=== PATIENT | male | born 1995 | race African-American/Black ===

== ENCOUNTER 2021-06-08 14:04 | Emergency (ER) | payer SELFPAY ==
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
--- NOTE | 2021-06-08 23:09 | PCM.EKG ---
#1 Interpretation EKG Date: 06/08/21 Time: 15:08 Rhythm: NSR Rate (Beats/Min): 84 [place]: Normal P-Wave: Present QRS: Normal ST-T: Normal QT: Normal Comparison: NA - No Prior EKG EKG Interpretation Comments: Per Dr. Key interpretation: Sinus rhythm at 84 bpm; Q waves V1 and R3rgnmakxt anteroseptal AL; LVH patternlikely normal for age
== END 2021-06-08 20:35 ==
LOC: JD.ED 14:04
DX: U07.1 COVID-19 (principal); F32.9 Major depressive disorder, single episode, unspecified; F11.10 Opioid abuse, uncomplicated; F15.10 Other stimulant abuse, uncomplicated; F14.10 Cocaine abuse, uncomplicated; F12.10 Cannabis abuse, uncomplicated; F17.210 Nicotine dependence, cigarettes, uncomplicated
CPT/HCPCS: 36415; 80053; 80143; 80179; 80306; 80307; 83735; 84443; 85025; 93005; 99284; 99285-25; U0002